=== PATIENT | male | born 1945 | race Caucasian/White ===

== ENCOUNTER 2022-03-19 19:05 | Inpatient (IN) | payer MEDICARE ==
[2022-03-19] MEDS ORDERED: Ondansetron ODT 4 MG TAB PO PRN (22:05)
[2022-03-19] MEDS ORDERED: Acetaminophen 325 MG TAB PO PRN (22:05)
[2022-03-19] MEDS ORDERED: Electrolyte Replacement Protocol 1 EACH FS SCH (22:15)
[2022-03-19 22:42] LABS: SARS-CoV-2 NAA Rapid Test Not Detected (NotDetected)
[2022-03-20 05:32] LABS: ALT (SGPT) 16 U/L (8-55); AST (SGOT) 17 U/L (5-34); Albumin 3.4 g/dL (3.4-4.8); Alkaline Phosphatase 44 U/L (40-110); Anion Gap 8 mmol/L (10-20); BUN (Urea Nitrogen) 14 mg/dL (8.4-25.7); Bilirubin, Total 0.5 mg/dL (0.2-1.2); Calc. Creatinine Clearance 77 mL/min (70-130); Calcium 8.6 mg/dL (7.8-10.44); Carbon Dioxide 30 mmol/L (23-31); Chloride 100 mmol/L (98-107); Estimated GFR 62; Globulin 2.9 g/dL (2.4-3.5); Glucose 76 mg/dL (83-110); Potassium 4.2 mmol/L (3.5-5.1); Protein, Total 6.3 g/dL (5.8-8.1); Sodium 134 mmol/L (136-145)
[2022-03-20 06:12] LABS: #Eosinphils 0.1 thou/uL (0.0-0.7); #Lymphocytes 0.9 thou/uL (1.20-3.40); #Monocytes 0.6 thou/uL (0.11-0.59); #Neutrophils 4.2 thou/uL (1.40-6.50); %Basophils 0.8 % (0.0-1.0); %Eosinophils 1.5 % (0.0-10.0); %Monocytes 9.6 % (0.0-10.0); Anisocytosis SLIGHT = 6-15 cells (100X) (0-5/hpf); Elliptocytes SLIGHT = 2-5 cells (100X) (0-1/hpf); Hemoglobin 6.3 g/dL (14.0-18.0); Hypochromia SLIGHT = 6-15 cells (100X) (0-5/hpf); MDiff Complete? YES; Mean Corpuscular HGB CONC 28.6 g/dL (32.0-36.0); Mean Corpuscular Hemoglobin 19.7 pg (27.0-31.0); Mean Corpuscular Volume 69.1 fl (78.0-98.0); Mean Platelet Volume 11.2 fL (7.4-10.4); Microcytosis SLIGHT = 6-15 cells (100X) (0-5/hpf); Platelet Count 400 10x3/uL (130-400); RBC Distribution Width 23.9 % (11.5-14.5); Red Blood Cell (RBC) Count 3.21 mill/uL (4.70-6.10); Tear Drops SLIGHT = 2-5 cells (100X) (0-1/hpf); White Blood Cell (WBC) Count 5.8 10x3/uL (4.8-10.8)
[2022-03-20] MEDS ORDERED: Magnesium 2 GM/50 ML(in water) 2 GM in Premix Bag 1 BAG IVPB SCH (08:00)
[2022-03-20] MEDS ORDERED: Pantoprazole 40 MG VIAL IVP SCH ×2 (09:00→21:00)
[2022-03-20] MEDS ORDERED: Furosemide 20 MG/2 ML VIAL SLOW IVP SCH (09:45)
[2022-03-20] MEDS: Amiodarone 200 MG TAB PO SCH (10:32)
[2022-03-20] MEDS: Atorvastatin Calcium 20 MG TAB PO SCH (20:30)
[2022-03-20] MEDS: Pantoprazole 40 MG VIAL IVP SCH (20:30)
[2022-03-20] MEDS ORDERED: Atorvastatin Calcium 20 MG TAB PO SCH (21:00)
[2022-03-21 05:13] LABS: Hemoglobin 8.7 g/dL (14.0-18.0); Mean Corpuscular HGB CONC 30.5 g/dL (32.0-36.0); Mean Corpuscular Hemoglobin 21.5 pg (27.0-31.0); Mean Corpuscular Volume 70.7 fl (78.0-98.0); Mean Platelet Volume 7.2 fL (7.4-10.4); Platelet Count 331 10x3/uL (130-400); RBC Distribution Width 24.1 % (11.5-14.5); Red Blood Cell (RBC) Count 4.05 mill/uL (4.70-6.10); White Blood Cell (WBC) Count 5.7 10x3/uL (4.8-10.8)
[2022-03-21 05:30] LABS: Anion Gap 14 mmol/L (10-20); BUN (Urea Nitrogen) 12 mg/dL (8.4-25.7); Calc. Creatinine Clearance 70 mL/min (70-130); Calcium 8.9 mg/dL (7.8-10.44); Carbon Dioxide 24 mmol/L (23-31); Chloride 100 mmol/L (98-107); Estimated GFR 59; Glucose 68 mg/dL (83-110); Magnesium 1.8 mg/dL (1.6-2.6); Potassium 4.2 mmol/L (3.5-5.1); Sodium 134 mmol/L (136-145)
[2022-03-21] MEDS: Dextrose 10% in Water 1,000 ML IV SCH (07:26)
[2022-03-21] MEDS ORDERED: Magnesium 2 GM/50 ML(in water) 2 GM in Premix Bag 1 BAG IVPB SCH (09:00)
[2022-03-21] MEDS: Amiodarone 200 MG TAB PO SCH (10:17)
[2022-03-21] MEDS: Pantoprazole 40 MG VIAL IVP SCH ×2 (10:17→22:24)
[2022-03-21] MEDS ORDERED: Magnesium Oxide 400 MG TAB PO SCH (11:45)
[2022-03-21] MEDS: Pyridostigmine Bromide IR 60 MG TAB PO SCH ×2 (14:19→23:11)
[2022-03-21] MEDS ORDERED: GoLYTELY 4,000 ml Bottle PO SCH (18:00)
[2022-03-21] MEDS: Atorvastatin Calcium 20 MG TAB PO SCH (22:24)
[2022-03-22] MEDS: Dextrose 10% in Water 1,000 ML IV SCH (05:00)
[2022-03-22 07:50] LABS: Phosphorus 3.3 mg/dL (2.3-4.7)
[2022-03-22 09:07] LABS: Anion Gap 17 mmol/L (10-20); BUN (Urea Nitrogen) 9 mg/dL (8.4-25.7); Calc. Creatinine Clearance 74 mL/min (70-130); Calcium 8.8 mg/dL (7.8-10.44); Carbon Dioxide 19 mmol/L (23-31); Chloride 98 mmol/L (98-107); Estimated GFR 63; Glucose 95 mg/dL (83-110); Potassium 4.4 mmol/L (3.5-5.1); Sodium 130 mmol/L (136-145)
[2022-03-22] MEDS: azaTHIOprine 50 MG TAB PO SCH (11:27)
[2022-03-22] MEDS: predniSONE 5 MG TAB PO SCH (11:28)
[2022-03-22] MEDS: Pantoprazole 40 MG VIAL IVP SCH ×2 (11:28→21:24)
[2022-03-22] MEDS: Amiodarone 200 MG TAB PO SCH (11:28)
[2022-03-22] MEDS: Pyridostigmine Bromide IR 60 MG TAB PO SCH ×3 (12:00→21:23)
[2022-03-22] MEDS ORDERED: Magnesium 2 GM/50 ML(in water) 2 GM in Premix Bag 1 BAG IVPB SCH (12:30)
[2022-03-22] MEDS: Atorvastatin Calcium 20 MG TAB PO SCH (21:24)
[2022-03-22] MEDS: Dextrose 10% in Water 500 ML IV SCH (23:18)
[2022-03-23] MEDS ORDERED: GoLYTELY 4,000 ml Bottle PO SCH (02:00)
[2022-03-23] MEDS: Dextrose 10% in Water 1,000 ML IV SCH (03:12)
[2022-03-23 06:55] LABS: Hemoglobin 7.2 g/dL (14.0-18.0); Mean Corpuscular Hemoglobin 20.5 pg (27.0-31.0); Mean Corpuscular Volume 70.5 fl (78.0-98.0); Mean Platelet Volume 11.5 fL (7.4-10.4); Platelet Count 388 10x3/uL (130-400); RBC Distribution Width 24.3 % (11.5-14.5); Red Blood Cell (RBC) Count 3.52 mill/uL (4.70-6.10)
[2022-03-23 07:12] LABS: Anion Gap 9 mmol/L (10-20); BUN (Urea Nitrogen) 5 mg/dL (8.4-25.7); Calc. Creatinine Clearance 87 mL/min (70-130); Calcium 8.2 mg/dL (7.8-10.44); Carbon Dioxide 29 mmol/L (23-31); Chloride 98 mmol/L (98-107); Estimated GFR 76; Glucose 99 mg/dL (83-110); Potassium 3.2 mmol/L (3.5-5.1); Sodium 133 mmol/L (136-145)
[2022-03-23] MEDS ORDERED: PROPOFOL 200 MG/20 ML VIAL ONE (08:13)
[2022-03-23 08:54] LABS: #Eosinphils 0.1 thou/uL (0.0-0.7); #Lymphocytes 0.6 thou/uL (1.20-3.40); #Monocytes 0.6 thou/uL (0.11-0.59); #Neutrophils 3.7 thou/uL (1.40-6.50); %Basophils 0.1 % (0.0-1.0); %Eosinophils 1.8 % (0.0-10.0); %Monocytes 11.3 % (0.0-10.0); %Neutrophils 74.8 % (42.0-75.0); Anisocytosis MODERATE=16-30 cells (100X) (0-5/hpf); Elliptocytes SLIGHT = 2-5 cells (100X) (0-1/hpf); Hypochromia SLIGHT = 6-15 cells (100X) (0-5/hpf); MDiff Complete? YES; Microcytosis SLIGHT = 6-15 cells (100X) (0-5/hpf); Ovalocytes SLIGHT = 2-5 cells (100X) (0-1/hpf); Polychromasia SLIGHT = 2-3 cells (100X) (0-2/hpf)
[2022-03-23] MEDS: predniSONE 5 MG TAB PO SCH (10:00)
[2022-03-23] MEDS: Pyridostigmine Bromide IR 60 MG TAB PO SCH ×3 (10:01→20:06)
[2022-03-23] MEDS: Amiodarone 200 MG TAB PO SCH (10:01)
[2022-03-23] MEDS: azaTHIOprine 50 MG TAB PO SCH (10:01)
[2022-03-23] MEDS: Pantoprazole 40 MG VIAL IVP SCH ×2 (10:01→20:06)
[2022-03-23 12:00] VITALS: BMI 32.3
[2022-03-23] MEDS ORDERED: Potassium Chloride 20 MEQ TAB PO SCH (12:45)
[2022-03-23] MEDS: Dextrose 10% in Water 500 ML IV SCH (15:15)
[2022-03-23] MEDS: Atorvastatin Calcium 20 MG TAB PO SCH (20:06)
[2022-03-23 21:17] LABS: Hemoglobin 7.9 g/dL (14.0-18.0)
[2022-03-24 07:04] LABS: Anion Gap 10 mmol/L (10-20); BUN (Urea Nitrogen) 6 mg/dL (8.4-25.7); Calc. Creatinine Clearance 94 mL/min (70-130); Carbon Dioxide 27 mmol/L (23-31); Chloride 103 mmol/L (98-107); Estimated GFR 84; Glucose 86 mg/dL (83-110); Potassium 3.6 mmol/L (3.5-5.1); Sodium 136 mmol/L (136-145)
[2022-03-24] MEDS: azaTHIOprine 50 MG TAB PO SCH (08:36)
[2022-03-24] MEDS: Pyridostigmine Bromide IR 60 MG TAB PO SCH ×3 (08:36→22:30)
[2022-03-24] MEDS: Pantoprazole 40 MG VIAL IVP SCH ×2 (08:37→22:31)
[2022-03-24] MEDS: Amiodarone 200 MG TAB PO SCH (08:37)
[2022-03-24] MEDS: predniSONE 5 MG TAB PO SCH (08:37)
[2022-03-24] MEDS: Atorvastatin Calcium 20 MG TAB PO SCH (22:30)
[2022-03-25 06:53] LABS: Hemoglobin 8.4 g/dL (14.0-18.0); Mean Corpuscular HGB CONC 29.7 g/dL (32.0-36.0); Mean Corpuscular Hemoglobin 22.3 pg (27.0-31.0); Mean Corpuscular Volume 75.2 fl (78.0-98.0); Mean Platelet Volume 10.7 fL (7.4-10.4); Platelet Count 334 10x3/uL (130-400); RBC Distribution Width 25.4 % (11.5-14.5); Red Blood Cell (RBC) Count 3.76 mill/uL (4.70-6.10); White Blood Cell (WBC) Count 7.5 10x3/uL (4.8-10.8)
[2022-03-25 07:06] LABS: Anion Gap 13 mmol/L (10-20); BUN (Urea Nitrogen) 8 mg/dL (8.4-25.7); Calc. Creatinine Clearance 85 mL/min (70-130); Calcium 8.2 mg/dL (7.8-10.44); Carbon Dioxide 22 mmol/L (23-31); Chloride 103 mmol/L (98-107); Estimated GFR 74; Glucose 77 mg/dL (83-110); Potassium 4.4 mmol/L (3.5-5.1); Sodium 134 mmol/L (136-145)
[2022-03-25] MEDS: Pantoprazole 40 MG VIAL IVP SCH (09:24)
[2022-03-25] MEDS: Pyridostigmine Bromide IR 60 MG TAB PO SCH ×2 (09:24→15:58)
[2022-03-25] MEDS: azaTHIOprine 50 MG TAB PO SCH (09:24)
[2022-03-25] MEDS: predniSONE 5 MG TAB PO SCH (09:24)
[2022-03-25] MEDS: Amiodarone 200 MG TAB PO SCH (09:25)
[2022-03-25 11:31] LABS: Anisocytosis MODERATE=16-30 cells (100X) (0-5/hpf); Band 3 % (5-11); Eosinophils 2 % (0-10); Hypochromia SLIGHT = 6-15 cells (100X) (0-5/hpf); Lymphocytes 9 % (21-51); MDiff Complete? YES; Microcytosis MODERATE=15-30 cells (100X) (0-5/hpf); Monocytes 8 % (0-10); Neutrophil 78 % (42-75); Ovalocytes MODERATE= 6-15 cells (100X) (0-1/hpf); Platelet Morphology Comment Appears Adequate; Polychromasia SLIGHT = 2-3 cells (100X) (0-2/hpf); Tear Drops SLIGHT = 2-5 cells (100X) (0-1/hpf)
[2022-03-25 15:47] VITALS: BP 123/77; TEMP 99.1
== END 2022-03-25 18:27 | disposition swing bed (61) | DRG 812 ==
LOC: 2NO 19:43 → SURG A 03-21 19:57
PROVIDERS: ADMIT Internal Medicine; ATTEND Internal Medicine
PROC: 30233N1 Transfusion of Nonautologous Red Blood Cells into Peripheral Vein, Percutaneous Approach (ICD-10-PCS; principal; 2022-03-20)
PROC: 0DB98ZX Excision of Duodenum, Via Natural or Artificial Opening Endoscopic, Diagnostic (ICD-10-PCS; 2022-03-23)
PROC: 0DJD8ZZ Inspection of Lower Intestinal Tract, Via Natural or Artificial Opening Endoscopic (ICD-10-PCS; 2022-03-23)
DX: D50.9 Iron deficiency anemia, unspecified (principal); Z20.822 Contact with and (suspected) exposure to COVID-19; G70.00 Myasthenia gravis without (acute) exacerbation; I48.91 Unspecified atrial fibrillation; K21.9 Gastro-esophageal reflux disease without esophagitis; I10 Essential (primary) hypertension; E78.5 Hyperlipidemia, unspecified; K57.30 Diverticulosis of large intestine without perforation or abscess without bleeding; K64.4 Residual hemorrhoidal skin tags; G89.29 Other chronic pain; M54.50 Low back pain, unspecified; Z96.641 Presence of right artificial hip joint; Z96.652 Presence of left artificial knee joint; E66.9 Obesity, unspecified; Z68.32 Body mass index [BMI] 32.0-32.9, adult; Z79.01 Long term (current) use of anticoagulants; Z90.49 Acquired absence of other specified parts of digestive tract; Z79.899 Other long term (current) drug therapy; Z79.52 Long term (current) use of systemic steroids; Z98.890 Other specified postprocedural states
CPT/HCPCS: 36415; 36416; 36430; 80048; 80053; 82274; 83735; 84100; 85025; 85027; 85046; 86850; 86900; 86901; 88305; 93005; 93010; 93306; 97139; C9113; J1940; J2704; J3475; J7060; J7500; J7512; P9016; U0002